=== PATIENT | male | born 1955 | race Two or more races ===

== ENCOUNTER 2017-10-13 02:59 | Emergency (ER) | payer BC ==
[2017-10-13] MEDS ORDERED: Proparacaine 0.5% Ophth Soln 15 ML Bottle EYEBOTH ONE (03:12)
--- NOTE | 2017-10-13 03:13 | EDM.PDOC ---
ED HPI GENERAL MEDICAL PROBLEM - General Chief Complaint: Eye Problems Stated Complaint: eye problems nausea Time Seen by Provider: 10/13/17 03:13 Source of Information: Reports: Patient History Limitations: Reports: No Limitations - History of Present Illness INITIAL COMMENTS - FREE TEXT/NARRATIVE: 62-year-old male presents to the ED with bilateral severe eye pain. 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 He presents essentially with ultraviolet radiation johnson to both eyes. He awoke around 0100 hrs. this morning with severe pain and excessive eye tearing. Onset: Sudden Onset Date: 10/13/17 Onset Time: 00:30 Duration: Hour(s): Location: Reports: Face (Severe pain both eyes with excessive tearing. Foreign body sensation in both eyes) Quality: Reports: Burning (Severe) Severity: Severe Improves with: Reports: None (And out of 10) Worsens with: Reports: Other Context: Reports: Other (Ultraviolet radiation johnson to both corneas from the workplace.). 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.) Bilateral Eye Pain Score (Numeric/FACES): 10 - Related Data Allergies Allergy/AdvReac Type Severity Reaction Status Date / Time codeine Allergy Rash Verified 10/13/17 03:10 Home Meds: Home Meds Ciprofloxacin [Ciprofloxacin 0.3% Ophth Soln] 5 ml OP Q8H #1 bottle 10/13/17 [Rx ] Tamsulosin HCl [Flomax] 0.4 mg PO DAILY 10/13/17 [History] Past Medical History Genitourinary History: Reports: BPH (On Flomax for this.) Social & Family History - Living Situation & Occupation Living situation: Reports: Occupation: Employed ED ROS GENERAL - Review of Systems Review Of Systems: See Below Constitutional: Denies: Fever, Chills, Malaise, Weakness, Fatigue, Decreased Appetite, Weight Loss HEENT: Reports: Eye Pain (Bilateral severe eye pain. Can hardly keep them open. Cannot stand any light. Excessive tearing bilaterally.) Respiratory: Reports: No Symptoms Cardiovascular: Reports: No Symptoms Endocrine: Reports: No Symptoms GI/Abdominal: Reports: No Symptoms : Reports: Frequency, Other Musculoskeletal: Reports: Back Pain Skin: Reports: No Symptoms Neurological: Reports: No Symptoms ED EXAM GENERAL W FULL EYE - Physical Exam Exam: See Below Exam Limited By: No Limitations General Appearance: Alert, WD/WN, Moderate Distress (Bilateral severe eye pain. Can't keep them open on his own volition.) Eye Exam: Bilateral Eye: Conjunctival Injection (Mild bilaterally), Corneal Abrasion (Pitting of the corneas bilaterally on slit lamp examination compatible with ultraviolet radiation johnson), PERRL Eyelids: Bilateral: Normal Appearance, Lid Everted for Exam Conjunctiva & Sclera: Bilateral: Injected Cornea Exam: Bilateral: Corneal Abrasion (Patient has severe pitting of both corneas left circumflex slightly worse on the right due to ultraviolet radiation johnson.) Extraocular Movements: Bilateral: Intact Pupils: Normal Accommodation Pupillary Size: Bilateral: 6 mm Pupillary Reaction: Bilateral: Brisk Anterior Chamber: Bilateral: Normal Appearance Course - Vital Signs Last Recorded V/S: Last Vital Signs Temp 36.8 C 10/13/17 03:07 Pulse 82 10/13/17 03:07 Resp 16 10/13/17 03:07 BP 134/92 H 10/13/17 03:07 Pulse Ox 95 10/13/17 03:07 - Orders/Labs/Meds Meds: Medications Discontinued Medications Generic Name Dose Route Start Last Admin Trade Name Brendenq PRN Reason Stop Dose Admin Ciprofloxacin 2.5 ml 10/13/17 03:25 10/13/17 03:42 Ciloxan 0.3% Ophth Soln EYEBOTH 10/13/17 03:26 Not Given ONETIME ONE Diphenhydramine HCl 50 mg 10/13/17 03:35 10/13/17 03:39 Benadryl PO 10/13/17 03:36 50 mg ONETIME ONE Administration Diphenhydramine HCl 50 mg 10/13/17 03:27 10/13/17 03:41 Benadryl PO 10/13/17 03:28 Not Given ONETIME ONE Ketorolac Tromethamine 2.5 ml 10/13/17 03:25 10/13/17 03:39 Acular 0.5% Ophth Soln EYELF 10/13/17 03:26 1 drop ONETIME ONE Administration Oxycodone/Acetaminophen 2 tab 10/13/17 03:34 10/13/17 03:39 Percocet 325-5 Mg PO 10/13/17 03:35 2 tab ONETIME ONE Administration Oxycodone/Acetaminophen 2 tab 10/13/17 03:26 10/13/17 03:42 Percocet 325-5 Mg PO 10/13/17 03:27 Not Given ONETIME ONE Proparacaine HCl 15 ml 10/13/17 03:12 10/13/17 03:17 Proparacaine 0.5% Ophth Soln EYEBOTH 10/13/17 03:13 2 drop ONETIME ONE Administration - Radiology Interpretation Free Text/Narrative:: 62-year-old male presents the ED with bilateral severe eye pain. 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 He has suffered bilateral ultra dorothy radiation johnson to both corneas. He got good relief with topical pole proparacaine drops bilaterally. Lids were everted no foreign bodies were identified. Slit-lamp exam reveals pitting of both corneas left slightly worse than the right due to ultraviolet radiation johnson. Patient will be treated with 2 tablets of Percocet 5/3/25 milligrams and Benadryl 50 by mouth now for pain relief and to allow sleep. Ketorolac drops replaced into both eyes 2 drops to each eye every 6 hours as needed for pain relief. Cipro eyedrops 2 drops to each eye 3 times daily for the next 2 days to prevent any secondary infection. Will be double patched closed prior to leaving the department and taken off only to put drops in for the next 18 hours - Re-Assessments/Exams Free Text/Narrative Re-Assessment/Exam: 10/13/17 04:08 2 further drops of proparacaine proparacaine were placed in each eye before he left. The initial drops and worn off. He will use Cipro eyedrops that we got from the Instymed machine as the plexus was dry. He will use 2 drops every 8 hours for the next 2 days to prevent secondary infection. Ketorolac drops 2 drops to each eye every 6 hours necessary for pain relief for the next day to day and a half. Note given to excuse him from the work place for today and tomorrow. Departure - Departure Time of Disposition: 03:35 Disposition: Home, Self-Care 01 Condition: Fair Clinical Impression: Welders' keratitis of both eyes Corneal abrasion Qualifiers: Encounter type: initial encounter Laterality: unspecified laterality Qualified Code(s): S05.00XA - Injury of conjunctiva and corneal abrasion without foreign body, unspecified eye, initial encounter - Discharge Information *PRESCRIPTION DRUG MONITORING PROGRAM REVIEWED*: Not Applicable *COPY OF PRESCRIPTION DRUG MONITORING REPORT IN PATIENT AARON: Not Applicable Prescriptions: Ciprofloxacin [Ciprofloxacin 0.3% Ophth Soln] 5 ml OP Q8H #1 bottle Instructions: Ultraviolet Keratitis, [id number] Referrals: Ten Tello MD [Primary Care Provider] - Forms: ED Department Discharge, ED Return to Work/School Form Additional Instructions: Evaluation the emergency room this morning due to severe bilateral eye pain with excessive tearing. Examination reveals bilateral ultraviolet radiation johnson to both eyes which is related to your work. "Both corneas have received Orion with pitting bilaterally. This will take at least 24 hours to settle down. Treatment is ketorolac eyedrops 2 drops to each eye every 6 hours as needed to relieve pain and inflammation. This can be used for the next 24 hours. Cipro eyedrops 2 drops to each eye about 5 minutes after the ketorolac drops have been placed every 8 hours for the next 2 days to prevent secondary infection. Double eye patch for the next 18 hours. You're also given some pain medication and some Benadryl to help you sleep tonight prevent excessive blinking of very painful eyes. Us will help them heal a bit faster. Off work certainly all day today and tomorrow. Expect the eyes to be quite sensitive the sun on Saturday. Will have to wear sunglasses if outside.
[2017-10-13] MEDS ORDERED: Ketorolac 0.5% Ophth Soln 5 ML Bottle EYELF ONE (03:25)
[2017-10-13] MEDS ORDERED: Ciprofloxacin 0.3% Ophth Soln 2.5 ML Bottle EYEBOTH ONE (03:25)
[2017-10-13] MEDS ORDERED: Acetaminophen/oxyCODONE 325-5 MG Tab PO ONE ×2 (03:26→03:34)
[2017-10-13] MEDS ORDERED: diphenhydrAMINE 50 MG Cap PO ONE ×2 (03:27→03:35)
== END 2017-10-13 04:13 | disposition home or self-care (01) ==
LOC: JD.ED 02:59
DX: S05.01XA Injury of conjunctiva and corneal abrasion without foreign body, right eye, initial encounter (principal); S05.02XA Injury of conjunctiva and corneal abrasion without foreign body, left eye, initial encounter; H16.133 Photokeratitis, bilateral; Z88.5 Allergy status to narcotic agent; Z79.899 Other long term (current) drug therapy
CPT/HCPCS: 99283; A9270

== ENCOUNTER 2017-11-08 21:14 | Emergency (ER) | payer OTHER, BC ==
[2017-11-08] MEDS ORDERED: Sodium Chloride 0.9% 10 ML Syringe FLUSH PRN (21:27)
[2017-11-08] MEDS ORDERED: HYDROmorphone 1 MG/ML Syringe IVPUSH ONE (21:27)
[2017-11-08] MEDS ORDERED: Metoclopramide 10 MG/2 ML SDV IVPUSH ONE (21:27)
--- NOTE | 2017-11-08 21:32 | EDM.PDOC ---
ED HPI GENERAL MEDICAL PROBLEM - General Chief Complaint: Upper Extremity Injury/Pain Stated Complaint: PIPE CRUSHED RIGHT HAND Time Seen by Provider: 11/08/17 21:27 Source of Information: Reports: Patient, Family (spouse) History Limitations: Reports: No Limitations - History of Present Illness INITIAL COMMENTS - FREE TEXT/NARRATIVE: 62-year-old male reports he was injured in the workplace about an hour ago. 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 He states a heavy piece of pipe i.e. drill stem that weighs around 900 pounds roll across his dorsal right hand. He was wearing a glove. There are no open lacerations or wounds. He is in severe pain with marked swelling of the dorsal right hand. Of note he is right-hand dominant. Denies any other injuries. Onset: Today Onset Date: 11/08/17 Onset Time: 20:10 Duration: Minutes: Location: Reports: Upper Extremity, Right (Right dorsal hand.) Quality: Reports: Ache, Pressure, Throbbing Severity: Severe (10 out of 10) Improves with: Reports: None Worsens with: Reports: Movement Context: Reports: Trauma (Heavy piece of drill stem pipe rolled across his right hand.). 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 Right Hand Pain Score (Numeric/FACES): 10 - Related Data Allergies Allergy/AdvReac Type Severity Reaction Status Date / Time codeine Allergy Rash Verified 11/08/17 21:25 Home Meds: Home Meds Ciprofloxacin [Ciprofloxacin 0.3% Ophth Soln] 5 ml OP Q8H #1 bottle 10/13/17 [Rx ] Tamsulosin HCl [Flomax] 0.4 mg PO DAILY 10/13/17 [History] oxyCODONE HCl/Acetaminophen [Percocet 5-325 mg Tablet] 1 - 2 each PO Q4H PRN # 20 tablet 11/08/17 [Rx] rOPINIRole HCl [rOPINIRole] 5 mg PO DAILY 11/08/17 [History] Past Medical History Gastrointestinal History: Reports: Other (See Below) Other Gastrointestinal History: gastric perforation Genitourinary History: Reports: BPH (On Flomax for this.) Neurological History: Reports: Other (See Below) (Restless leg syndrome) Social & Family History - Family History Family Medical History: Noncontributory - Living Situation & Occupation Living situation: Reports: Occupation: Employed Review of Systems - Review of Systems Review Of Systems: See Below Constitutional: Reports: No Symptoms Eyes: Reports: No Symptoms Ears: Reports: No Symptoms Nose: Reports: No Symptoms Mouth/Throat: Reports: No Symptoms Respiratory: Reports: No Symptoms Cardiovascular: Reports: No Symptoms GI/Abdominal: Reports: No Symptoms Genitourinary: Reports: Other (Arterial 2. He has known BPH.) Musculoskeletal: Reports: Back Pain Skin: Reports: No Symptoms Neurological: Reports: Other Psychiatric: Reports: No Symptoms (Restless leg syndrome which causes interference with his sleep.) ED EXAM, GENERAL - Physical Exam Exam: See Below Exam Limited By: No Limitations General Appearance: Moderate Distress (He is in a lot of pain from swelling and dorsal right hand.) Respiratory/Chest: No Respiratory Distress, Lungs Clear, Normal Breath Sounds, Respiratory Distress Cardiovascular: Normal Peripheral Pulses, Regular Rate, Rhythm, No Edema, No Gallop, No Murmur (Mild tachypnea at rest 20/m. Lungs are clear) Peripheral Pulses: 2+: Radial (L), Radial (R) GI/Abdominal: Normal Bowel Sounds, Soft, Non-Tender, No Organomegaly Extremities: Other (Examination the right hand shows inability to move any of his fingers due to pain. There is a large hematoma on the dorsal aspect of the entire hand) Neurological: Alert, Oriented ( making his hand twice as thick as normal. There is no ecchymosis on the palmar aspect of the hand. His wrist appears to be normal on examination.), CN II-XII Intact, Normal Cognition, Normal Gait Psychiatric: Other Skin Exam: Warm, Dry, Intact, Normal Color, No Rash ED TRAUMA EXTREMITY PROCEDURES - Splinting Right Upper Extremity Splint Site: Rt hand /forearm --below elbow Pre-Procedure NV Status: Normal Post-Procedure NV Status: Normal Splint Material: Fiberglass Splint Design: Gutter (radial) Applied & Form Fitted By: Provider Provider Post-Splint Application NV Check: NV Status Normal Complications: No Course - Vital Signs Last Recorded V/S: Last Vital Signs Temp 36.9 C 11/08/17 21:20 Pulse 69 11/08/17 21:20 Resp 20 11/08/17 21:20 BP 133/90 11/08/17 21:20 Pulse Ox 95 11/08/17 21:20 - Orders/Labs/Meds Orders: Active Orders 24 hr Category Date Time Status Peripheral IV Care [RC] . DIRECTED Care 11/08/17 21:27 Active Hand Comp Min 3V Rt [CR] Stat Exams 11/08/17 21:28 Taken Sodium Chloride 0.9% [Saline Flush] Med 11/08/17 21:27 Active 10 ml FLUSH ASDIRECTED PRN Peripheral IV Insertion Adult [OM.PC] Stat Oth 11/08/17 21:27 Ordered Medication Orders Sodium Chloride (Saline Flush) 10 ml FLUSH ASDIRECTED PRN PRN Reason: Keep Vein Open Last Admin: 11/08/17 21:42 Dose: 10 ml Meds: Medications Generic Name Dose Route Start Last Admin Trade Name Freq PRN Reason Stop Dose Admin Sodium Chloride 10 ml 11/08/17 21:27 11/08/17 21:42 Saline Flush FLUSH 10 ml ASDIRECTED PRN Administration Keep Vein Open Discontinued Medications Generic Name Dose Route Start Last Admin Trade Name Freq PRN Reason Stop Dose Admin Hydromorphone HCl 1 mg 11/08/17 21:27 11/08/17 21:43 Dilaudid IVPUSH 11/08/17 21:28 1 mg ONETIME ONE Administration Hydromorphone HCl Confirm 11/08/17 21:38 Dilaudid Administered 11/08/17 21:39 Dose 1 mg .ROUTE .STK-MED ONE Metoclopramide HCl 7.5 mg 11/08/17 21:27 11/08/17 21:41 Reglan IVPUSH 11/08/17 21:28 7.5 mg ONETIME ONE Administration - Radiology Interpretation Free Text/Narrative:: 62-year-old male presents to the ED with a work-related injury. Injured in the workplace when a large piece of pipe roll across his gloved right hand. The day and immediate swelling and severe pain of the entire right dorsal hand. Clinically he has likely fractured at least one or 2 metacarpals. X-rays of the right hand to be done. Given Dilaudid 1 mg IV through a saline lock with Reglan 7.5 mg IV as well. - Re-Assessments/Exams Free Text/Narrative Re-Assessment/Exam: 11/08/17 22:26 x-rays of the right hand reveal a fracture at the base of the right second metacarpal bone. Position is good at this time even though the fracture is intra-articular. There is an old healed fracture of the fifth metacarpal bone with 30 of volar angulation. No other fractures are identified on my assessment. Will be to place him in a volar Ortho-Glass splint with a radial component. Once the swelling goes down he can follow-up with Dr. Carlos today or Dr. Sargent in clinic next week about Saturday or to have a cast placed. The meantime I will give him 20 tablets of Percocet 5/3/25 milligrams strength one or 2 every 4-6 hours for pain relief as needed. His hand as much possible at level heart level. Ice pack to the area one half hour of every 4 hours for the next 2 days. Off work for the next week and likely longer unless alternative work duties are available to him in the workplace. He will essentially not be able to use his hand for about 6 weeks. 11/08/17 22:58 Patient was placed in a radial gutter Orthoplast splint with sabi taping of his second and third fingers to minimize movement until he could have cast placement once the swelling goes down likely about Saturday or next week. Percocet tablets 20 written as the has a few tablets at home and he will not need Instymed tonight. He will elevate and ice as discussed above. Departure - Departure Time of Disposition: 22:59 Disposition: Home, Self-Care 01 Condition: Fair Clinical Impression: Crushing injury of hand, excluding fingers Qualifiers: Encounter type: initial encounter Laterality: right Qualified Code(s): S67.21XA - Crushing injury of right hand, initial encounter - Discharge Information *PRESCRIPTION DRUG MONITORING PROGRAM REVIEWED*: Not Applicable *COPY OF PRESCRIPTION DRUG MONITORING REPORT IN PATIENT AARON: Not Applicable Prescriptions: oxyCODONE HCl/Acetaminophen [Percocet 5-325 mg Tablet] 1 - 2 each PO Q4H PRN # 20 tablet PRN Reason: pain relief. Instructions: Metacarpal Fracture, [id number] Referrals: Ten Tello MD [Primary Care Provider] - Forms: ED Department Discharge, ED Return to Work/School Form Additional Instructions: Evaluation in the emergency room tonight in regards to crush injury to the dorsal aspect of your right hand that occurred in the workplace tonight. There is marked swelling of the entire dorsal hand which was worrisome for multiple fractures. However x-rays reveal an old healed fracture of the fifth metacarpal bone which is her pinky finger. There is a new hairline crack at the base of the second metacarpal bone adjacent to your wrist. Therefore mobilization was carried out with an Orthoplast splint. Once the swelling goes down by Saturday or next week a cast needs to be placed. Suggest follow-up with either Dr. Ibrahim or Dr. Mackenzie in clinic. Please call Dr. Ibrahim's office at [phone] to arrange an appointment with he is unavailable Dr. Mackenzie at [phone] to arrange an appointment. Elevate the hand as much as possible at heart level for the next 3 days to help swelling go down. We'll give you a sling to help support it. Ice pack to the dorsal hand for one half hour out of every 4 hours for the next 2 days. You're off work at least a week until after cast is placed and then if alternative work duties are available to you when he would not have to use her right hand you may return to work however other otherwise he will be off work for a minimum of 6 weeks to allow the fracture to heal appropriately. Suggest use of Percocet tablets one or 2 every 4-6 hours as needed for pain relief for the next 3 days and after this switch to Motrin 600 mg every 6 hours as needed. - My Orders Last 24 Hours: My Active Orders 11/08/17 21:27 Peripheral IV Care [RC] . DIRECTED Sodium Chloride 0.9% [Saline Flush] 10 ml FLUSH ASDIRECTED PRN Peripheral IV Insertion Adult [OM.PC] Stat 11/08/17 21:28 Hand Comp Min 3V Rt [CR] Stat - Assessment/Plan Last 24 Hours: My Active Orders 11/08/17 21:27 Peripheral IV Care [RC] . DIRECTED Sodium Chloride 0.9% [Saline Flush] 10 ml FLUSH ASDIRECTED PRN Peripheral IV Insertion Adult [OM.PC] Stat 11/08/17 21:28 Hand Comp Min 3V Rt [CR] Stat
[2017-11-08] MEDS ORDERED: HYDROmorphone 1 MG/ML Syringe ONE (21:38)
--- NOTE | 2017-11-11 19:39 | CR ---
Right hand: Four views of the right hand were obtained. Comparison: No previous study. Diffuse soft tissue swelling is identified. Old healed fracture deformity is noted within the fifth metacarpal. No acute fracture or other bony abnormality is seen. Impression: 1. Diffuse soft tissue swelling. 2. Old healed fracture deformity as noted above. No acute bony abnormality is appreciated. Diagnostic code #3
== END 2017-11-08 23:14 | disposition home or self-care (01) ==
LOC: JD.ED 21:14
DX: S67.21XA Crushing injury of right hand, initial encounter (principal); Z88.5 Allergy status to narcotic agent; W20.8XXA Other cause of strike by thrown, projected or falling object, initial encounter; Y99.0 Civilian activity done for income or pay
CPT/HCPCS: 29125; 73130; 96374; 96375; 99283; J2765; J7050; 99284-25; J1170